=== PATIENT | female | born 1950 | race Caucasian/White ===

== ENCOUNTER 2018-05-18 10:21 | Observation (INO) | payer OTHER ==
[~2018-05-18 10:21] MED LIST: ROPIVACAINE 0.2% 80 MG, EPINEPHrine 0.2 MG, KETOROLAC TROMETHAMINE 30 MG in SYRINGE 0 ML IU ONE; TRANEXAMIC ACID 3,000 MG in NS (SYRINGE) 50 ML IRR ONE; TRANEXAMIC ACID 3,000 MG/50 ML BAG IRR ONE
[2018-05-18] MEDS ORDERED: LR 1,000 ML IV ONE (10:45)
[2018-05-18] MEDS ORDERED: ACETAMINOPHEN 325 MG TAB PO ONE (10:45)
[2018-05-18] MEDS ORDERED: FAMOTIDINE 20 MG TAB PO ONE (10:45)
[2018-05-18] MEDS ORDERED: DEXAMETHASONE 4 MG/ML VIAL IVP ONE (10:45)
[2018-05-18] MEDS ORDERED: ceFAZolin 2 GM/DEXTROSE 100 ML IV ONE (10:45)
[2018-05-18] MEDS ORDERED: PROPOFOL/EMULSION 500 MG/50 ML BOTTLE IV ONE (10:54)
[2018-05-18] MEDS ORDERED: LIDOCAINE 2% 2 ML INJ ONE ×2 (10:57→10:58)
[2018-05-18] MEDS ORDERED: MIDAZOLAM 2 MG/2 ML VIAL IVP ONE (11:22)
--- NOTE | 2018-05-18 11:34 | PDANEPAE ---
ANE History of Present Illness right knee OA for TKA ANE Past Medical History - Cardiovascular History Hx Hypertension: No Hx Arrhythmias: No Hx Chest Pain: No Hx Coronary Artery / Peripheral Vascular Disease: No Hx CHF / Valvular Disease: No Hx Palpitations: No Cardiovascular History Comment: MURMUR - Pulmonary History Hx COPD: No Hx Asthma/Reactive Airway Disease: Yes Hx Recent Upper Respiratory Infection: No Hx Oxygen in Use at Home: No Hx Sleep Apnea: No Sleep Apnea Screening Result - Last Documented: Negative Pulmonary History Comment: ASTHMA TRIGGERS COLD WEATHER - Neurologic History Hx Cerebrovascular Accident: No Hx Seizures: No Hx Dementia: No - Endocrine History Hx Diabetes: No Endocrine History Comment: HYPOTHYROID - Renal History Hx Renal Disorders: No - Liver History Hx Hepatic Disorders: No - Neurological & Psychiatric Hx Hx Neurological and Psychiatric Disorders: Yes Neurological / Psychiatric History Comment: DEPRESSION - Cancer History Hx Cancer: No - Congenital Disorder History Hx Congenital Disorders: No - GI History Hx Gastrointestinal Disorders: No - Other Health History Other Health History: OSTEOARTHRITIS. MISSING TOOTH - Chronic Pain History Chronic Pain: Yes (RT KNEE) - Surgical History Prior Surgeries: LT TOTAL KNEE 2007. SINUS. HYSTERECTOMY ANE Review of Systems Review of systems is: negative Review of Systems: - Exercise capacity METS (RN): 6 METS ANE Patient History - Allergies Allergies/Adverse Reactions: oxycodone Allergy (Verified 04/26/18 10:10) VOMITING/DEHYDRATION - Home Medications Home Medications: Albuterol [Proventil Inhaler HFA (*)] 1 - 2 puffs IH Q4HRS PRN 04/26/18 [Last Taken Unknown] Ascorbic Acid [Vitamin C 500 mg (*)] 1,000 mg PO DAILY 04/26/18 [Last Taken Unknown] Cyanocobalamin [Vitamin B12 (*)] 3,000 mcg PO DAILY 04/26/18 [Last Taken Unknown ] FLUoxetine HCL [Fluoxetine HCl] 80 mg PO DAILY 04/26/18 [Last Taken Unknown] Fexofenadine HCl [Amy Allergy] 180 mg PO DAILY 04/26/18 [Last Taken Unknown] Fluticasone Nasal [Flonase Nasal [place] (RX)] 1 sprays EACHNARE DAILY 04/26/18 [ Last Taken Unknown] Fluticasone/Vilanterol [Breo Ellipta 200-25 Mcg INH] 1 each IH DAILY 04/26/18 [ Last Taken Unknown] Herbals/Supplements -Info Only 1 ea PO DAILY 04/26/18 [Last Taken Unknown] Levothyroxine [Synthroid 125 mcg (*)] 125 mcg PO DAILY06 04/26/18 [Last Taken Unknown] Loratadine [Claritin 10 mg] 10 mg PO DAILY PRN 04/26/18 [Last Taken Unknown] Multivitamins [Multivitamin (*)] 1 each PO DAILY 04/26/18 [Last Taken Unknown] - NPO status NPO Since - Liquids (Date): 05/18/18 NPO Since - Liquids (Time): 09:30 NPO Since - Solids (Date): 05/17/18 NPO Since - Solids (Time): 22:00 - Smoking Hx Smoking Status: Never smoked ANE Labs/Vital Signs - Vital Signs Blood Pressure: 143/69 Heart Rate: 58 Respiratory Rate: 15 O2 Sat (%): 94 Height: 162.56 cm Weight: 89.811 kg ANE Physical Exam - Airway Neck exam: FROM Mallampati Score: Class 2 Mouth exam: normal dental/mouth exam - Pulmonary Pulmonary: no respiratory distress - Cardiovascular Cardiovascular: regular rate and rhythym - ASA Status ASA Status: II ANE Anesthesia Plan Anesthesia Plan: spinal
--- NOTE | 2018-05-18 11:36 | POSTANESTH ---
Post Anesthetic Evaluation Cardiovascular Status: Normal, Stable Respiratory Status: Normal, Stable Level of Consciousness/Mental Status: Can Participate in Eval Pain Control: Adequate, Prn Tx Ordered Nausea/Vomiting Control: Adequate, Prn Tx Ordered Complications Possibly Related to Anesthesia: None Noted
[2018-05-18] MEDS ORDERED: BUPIVACAINE/DEXTROSE 7.5MG/ML 2 ML SPINAL AMP SP ONE (11:37)
[2018-05-18] MEDS ORDERED: ROPIVACAINE HCL 150 MG/30 ML INJ ONE (11:38)
[2018-05-18] MEDS ORDERED: NALOXONE HCL 0.4 MG/ML INJ IVP PRN (12:31)
[2018-05-18] MEDS ORDERED: fentaNYL 100 MCG/2 ML INJ IVP PRN (12:31)
[2018-05-18] MEDS ORDERED: HYDROmorphONE/DILAUDID 2 MG/ML INJ IVP PRN (12:31)
[2018-05-18] MEDS ORDERED: HYDROCODONE/APAP 5/325 TAB PO PRN (12:31)
[2018-05-18] MEDS ORDERED: ACETAMINOPHEN 500 MG TAB PO PRN (12:31)
[2018-05-18] MEDS ORDERED: ALBUTEROL 3 ML DEYVIAL IH PRN (12:31)
[2018-05-18] MEDS ORDERED: LR 500 ML IV PRN (12:31)
[2018-05-18] MEDS ORDERED: ONDANSETRON 4 MG/2 ML VIAL IVP PRN ×2 (12:31→13:10)
[2018-05-18] MEDS ORDERED: LACTULOSE 20 GM/30 ML UDCUP PO PRN (13:10)
[2018-05-18] MEDS ORDERED: POLYETHYLENE GLYCOL 3350 17 GM PKT PO PRN (13:10)
[2018-05-18] MEDS ORDERED: BISACODYL 10 MG SUPP PR PRN (13:10)
[2018-05-18] MEDS ORDERED: METOCLOPRAMIDE 10 MG/2 ML VIAL IVP PRN (13:10)
[2018-05-18] MEDS ORDERED: ONDANSETRON DISINTEGRATING 4 MG TAB PO PRN (13:10)
[2018-05-18] MEDS ORDERED: PROMETHAZINE HCL 25 MG/ML INJ IVP PRN (13:10)
[2018-05-18] MEDS ORDERED: PROMETHAZINE HCL 25 MG SUPPR PR PRN (13:10)
[2018-05-18] MEDS ORDERED: diphenhydrAMINE 25 MG CAP PO PRN (13:10)
[2018-05-18] MEDS ORDERED: CYCLOBENZAPRINE 10 MG TAB PO PRN (13:10)
[2018-05-18] MEDS ORDERED: TEMAZEPAM 15 MG CAP PO PRN (13:10)
[2018-05-18] MEDS ORDERED: MAGNESIUM HYDROXIDE 30 ML UDCUP PO PRN (13:10)
[2018-05-18] MEDS ORDERED: DIPHENOXYLATE/ATROPINE LOMOTIL 1 TAB PO PRN (13:10)
--- NOTE | 2018-05-18 13:10 | POSTOPPROG ---
Post Op Note Date of Operation: 05/18/18 Surgeon: Harmony Campbell [place] Handle Knife Assembler: gabriele campbell PA-C Anesthesiologist: dr. oden Anesthesia: Spinal, Other (Specify) (adductor canal block) Pre-op Diagnosis: right knee OA Post-op Diagnosis: same Indication: right knee pain Procedure: R TKA Findings: severe knee OA Inf/Abcess present in the surg proc area at time of surgery?: No EBL: 50-100
[2018-05-18] MEDS ORDERED: LR 1,000 ML IV SCH (13:30)
[2018-05-18] MEDS ORDERED: ALBUTEROL 60 PUFFS/8 GM MDI IH PRN (15:00)
--- NOTE | 2018-05-18 15:24 | PDHPUP ---
History & Physical Update H&P update statement: This history and physical update is based on an assessment of the patient which was completed after admission or registration (within 24 hours), but prior to the surgery/procedure. H&P update: H&P reviewed & patient examined, no change in patient's condition since H&P completed
[2018-05-18] MEDS: ACETAMINOPHEN 325 MG TAB PO SCH ×2 (17:35→23:39)
[2018-05-18] MEDS: ceFAZolin 2 GM/DEXTROSE 100 ML IV SCH (20:11)
[2018-05-18] MEDS: FAMOTIDINE 20 MG TAB PO SCH (20:12)
[2018-05-18] MEDS: SENNOSIDES/DOCUSATE SODIUM TAB PO SCH (20:12)
[2018-05-18] MEDS: ASPIRIN 81 MG CHEWABLE TAB PO SCH (20:12)
[2018-05-18] MEDS: HYDROmorphONE/DILAUDID 2 MG TAB PO PRN (21:16)
[2018-05-19] MEDS: ACETAMINOPHEN 325 MG TAB PO SCH ×4 (04:58→23:05)
[2018-05-19] MEDS: LEVOTHYROXINE 125 MCG TAB PO SCH (04:58)
[2018-05-19] MEDS: ceFAZolin 2 GM/DEXTROSE 100 ML IV SCH (04:58)
--- NOTE | 2018-05-19 08:37 | SOAPPROG ---
SOAP Progress Note Assessment/Plan: Assessment: Patient is doing well POD 1 s/p R TKA Pain management: pain is well controlled on oral pain meds. VTE ppx: recommend aspirin 81 mg BID for 4 weeks, cont MAGALY and SCDs Anemia: level is expected initially postop. Asymptomatic. Continue to monitor D/c planning: d/c to home today pending release from PT postop urinary retention: straight cath'd yesterday, resolved today Plan: 05/19/18 08:36 Subjective: Gi is doing well, denies SOB ,chest pain and N/V. Objective: Vital Signs Temp Pulse Resp BP Pulse Ox 36.4 C 61 18 114/70 96 05/19/18 08:00 05/19/18 08:00 05/19/18 08:00 05/19/18 08:00 05/19/18 08:00 Laboratory Results 05/19/18 00:42 05/18/18 05/19/18 05/20/18 05:59 05:59 05:59 Intake Total 1850 Output Total 2150 Balance -300 RLE: incision dressing is clean and dry, NVI, +pf/df ICD10 Worksheet Patient Problems: Problems Problem Status Onset Primary localized osteoarthritis of right knee Acute
[2018-05-19] MEDS: ASPIRIN 81 MG CHEWABLE TAB PO SCH ×2 (08:42→20:32)
[2018-05-19] MEDS: FAMOTIDINE 20 MG TAB PO SCH ×2 (08:43→20:31)
[2018-05-19] MEDS: HYDROmorphONE/DILAUDID 2 MG TAB PO PRN ×3 (08:43→23:05)
[2018-05-19] MEDS: SENNOSIDES/DOCUSATE SODIUM TAB PO SCH ×2 (08:44→20:31)
[2018-05-19] MEDS: FLUoxetine 20 MG CAP PO SCH (08:44)
--- NOTE | 2018-05-19 09:40 | GDS ---
ADMISSION DIAGNOSIS: Right knee osteoarthritis. DISCHARGE DIAGNOSIS: Right knee osteoarthritis. PROCEDURE: Right total knee arthroplasty. VTE PROPHYLAXIS: Recommend aspirin 81 mg twice daily for 4 weeks. BRIEF DESCRIPTION OF HOSPITAL STAY: Patient was admitted for an elective joint arthroplasty. The pa gutierrez tolerated the procedure well and has passed physical therapy. The patient was given appropriat e antibiotic prophylaxis and venous thromboembolism prophylaxis. The patient's pain was well control led on oral pain medication, patient was holding down food, and had urinated. Decision was made to d ischarge the patient. The patient was given post-operative prescriptions pre-operatively. PLAN: To follow up as scheduled with Dr. Ordoñez's office June 09 at 1:15 p.m. /[id number]/MODL
[2018-05-19] MEDS: Fluticasone/Vilanterol [Breo Ellipta 200-25 Mcg Inh] 1 EACH IH SCH (09:55)
--- NOTE | 2018-05-19 10:40 | ASMTLACE ---
STEPHEN Length of stay for Answers: 2 days current admission Acuity / Level of Answers: No Care: Did the patient have an inpatient admission? Comorbidities - select Answers: Opioid dependence all that apply / Chronic pain Other Notes: Hypothyroid; Asthma # of Emergency department Answers: 0 visits in the last 6 months Social determinants Answers: Mental health diagnosis (anxiety, depression, pers onality disorders, etc.) Score: 10 Date Signed: 05/19/2018 10:39 AM Electronically Signed By:JAZMIN Richards
--- NOTE | 2018-05-19 12:01 | GOP ---
DATE OF OPERATION: 05/18/2018 SURGEON: Ngoc Ordoñez MD DIRECTOR SPORTS: Georgette Ordoñez P.A.-C. ANESTHESIA: Spinal. PREOPERATIVE DIAGNOSIS: Right knee osteoarthritis. POSTOPERATIVE DIAGNOSIS: Right knee osteoarthritis. PROCEDURE PERFORMED: Total knee arthroplasty. FINDINGS: ESTIMATED BLOOD LOSS: 30 cc. INDICATIONS: This is a 67-year-old female with severe and progressive pain and deformity of the right knee unresponsive to conservative care. Risks and benefits of the surgical intervention were explained in detail. DESCRIPTION OF PROCEDURE: The patient was brought to the operative room and placed on the table in the supine position. Spinal anesthesia was induced without difficulty. A pneumatic tourniquet was applied about the right proximal thigh, and the leg was prepped and draped in a sterile fashion. The leg flores was applied. After exsanguination by elevation the tourniquet was inflated to 275 mmHg. Incision was made anterior medial from the tibial tuberosity to a point 2 cm proximal to the superior pole of the patella. Medial parapatellar arthrotomy was carried out from the superior pole of the patella and posteriorly in line with the fibers of the Type Type II VMO. Pathology: Severe medial patellofemoral osteoarthritis . The medial collateral ligament was elevated and the infrapatellar fat pad was resected. The patella was everted and the articular surface was excised. A 32 mm patellar button was placed. The distal femoral guide hole was drilled and the 6 degree alignment bárbara was placed. A 10 mm distal femoral cut was made without difficulty. Attention was turned to the tibia and a standard 9 mm cut based on the lateral condyle was performed. The tibial articular surface was excised without difficulty. Attention was turned back to the femur and a size 3 femoral cutting block was positioned. Anterior, posterior, and chamfer cuts were made, followed by the intercondylar box cut. The knee was extended and the remnants of the medial and lateral meniscus were excised. The posterior capsule was injected with ropivacaine, epinephrine and Toradol. A Triathlon tibia size 4 tibial tray was positioned. Trial reduction was then carried out. There was excellent range of motion, alignment, and stability using the 11 mm polyethylene. All trials were then removed. The pressfit components were implanted and all excess cement was thoroughly removed. The permanent 11 mm polyethylene, X3 was placed without difficulty. The tourniquet was deflated and all bleeders were coagulated. The wound was thoroughly irrigated and closed using interrupted sutures of 2-0 Vicryl for the joint capsule. The subcu was closed with 3-0 Vicryl and the skin with 4-0 Monocryl. Dermabond and Steri-Strips were applied followed by a compressive dressing. The patient was then moved from the operating room to the recovery room in good condition, having tolerated the procedure well. /[id number]/MODL MTDD
[2018-05-19] MEDS: FLUTICASONE NASAL 120 SPRAYS/16 GM MDI EACHNARE SCH (13:04)
[2018-05-20] MEDS: ACETAMINOPHEN 325 MG TAB PO SCH ×2 (06:04→12:51)
[2018-05-20] MEDS: LEVOTHYROXINE 125 MCG TAB PO SCH (06:04)
[2018-05-20 07:42] VITALS: BP 144/66
[2018-05-20] MEDS: ASPIRIN 81 MG CHEWABLE TAB PO SCH (09:07)
[2018-05-20] MEDS: FAMOTIDINE 20 MG TAB PO SCH (09:07)
[2018-05-20] MEDS: FLUoxetine 20 MG CAP PO SCH (09:07)
[2018-05-20] MEDS: SENNOSIDES/DOCUSATE SODIUM TAB PO SCH (09:08)
[2018-05-20] MEDS: Fluticasone/Vilanterol [Breo Ellipta 200-25 Mcg Inh] 1 EACH IH SCH (09:08)
[2018-05-20] MEDS: FLUTICASONE NASAL 120 SPRAYS/16 GM MDI EACHNARE SCH (09:08)
[2018-05-20] MEDS: HYDROmorphONE/DILAUDID 2 MG TAB PO PRN (09:12)
--- NOTE | 2018-05-20 09:12 | CPEKG ---
Test Reason : Blood Pressure : / mmHG Vent. Rate : 048 BPM Atrial Rate : 047 BPM P-R Int : 171 ms QRS Dur : 089 ms QT Int : 464 ms P-R-T Axes : 041 003 032 degrees QTc Int : 415 ms Sinus bradycardia Atrial premature complexes in couplets Confirmed by Tripp Wallace ([id number]) on 05/20/2018 9:12:01 AM Referred By: Confirmed By:Tripp Wallace
--- NOTE | 2018-05-20 09:42 | SOAPPROG ---
SOAP Progress Note Assessment/Plan: Assessment: Patient is doing well POD 2 s/p R TKA Pain management: pain is well controlled on oral pain meds. VTE ppx: recommend aspirin 81 mg BID for 4 weeks, cont MAGALY and SCDs Anemia: level is expected initially postop. Asymptomatic. Continue to monitor D/c planning: d/c to home today pending release from PT postop urinary retention: straight cath'd Wednesday, resolved yesterday Vasovagal episodes: patient has LOC once and two other episodes of lightheadedness. She has not passed PT yet. Ok for d/c once patient is released from PT. Patient is comfortable with D/c to home and has history of vasovagal episodes in the past. Plan: 05/19/18 08:36 05/20/18 09:34 Subjective: Gi is doing well, felling much better today, sitting in a chair. patient feels comfortable to discharge to home Objective: Vital Signs Temp Pulse Resp BP Pulse Ox 36.3 C 57 L 14 144/66 H 96 05/20/18 07:41 05/20/18 07:41 05/20/18 07:41 05/20/18 07:41 05/20/18 07:41 Laboratory Results 05/20/18 04:20 05/19/18 05/20/18 05/21/18 05:59 05:59 05:59 Intake Total 1850 2200 900 Output Total 2150 3550 Balance -300 -1350 900 RLE: incision dressing is clean and dry ICD10 Worksheet Patient Problems: Problems Problem Status Onset Primary localized osteoarthritis of right knee Acute
== END 2018-05-20 13:00 | disposition home or self-care (01) ==
LOC: F3E 10:21 → F3N 14:50
PROVIDERS: ADMIT Orthopaedic Surgery; ATTEND Orthopaedic Surgery
PROC: 0T9B70Z Drainage of Bladder with Drainage Device, Via Natural or Artificial Opening (ICD-10-PCS; principal; 2018-05-18 12:00)
PROC: 0SRC0J9 Replacement of Right Knee Joint with Synthetic Substitute, Cemented, Open Approach (ICD-10-PCS; principal; 2018-05-18 12:00)
DX: M17.11 Unilateral primary osteoarthritis, right knee (principal); R33.8 Other retention of urine
CPT/HCPCS: 27447; 51701; 73560; 93005; 97110; 97116; 97161; 97530; G0378; J0171; J0690; J1100; J1885; J2250; J2704; J2795